=== PATIENT | female | born 2000 | race Caucasian/White ===

== ENCOUNTER 2023-09-07 17:01 | Inpatient (IN) | payer OTHER, SELFPAY ==
--- NOTE | 2023-09-07 15:03 | US_ITS ---
EXAM: US SECOND OR THIRD TRIMESTER , TRANSABDOMINAL CLINICAL INDICATION: growth and well being -- cholestasis -- limited care TECHNIQUE: Transabdominal obstetrical ultrasound of the maternal pelvis and a second or third trimester with image documentation. COMPARISON: No relevant prior studies available. FINDINGS: FETUS: There is an intrauterine gestation. HEART RATE: heart rate is 137 bpm. PRESENTATION: Fetus is in a cephalic position. PLACENTA: Placenta is anterior. No placenta previa. No abruption. AMNIOTIC FLUID: ANDREW is 20.8 cm. ANATOMY: Intracranial/face anatomy not seen. Spinal anatomy not seen. Abdominal anatomy not seen. Extremities not seen. Four-chamber heart not seen. Umbilical cord not seen. BIOMETRICS GESTATIONAL AGE: Gestational age 37 weeks 2 days. SETH: SETH 09/26/2023. EFW: Estimated weight 3485 g, 83rd percentile. BPD: Biparietal diameter 9.4 cm age 38 weeks 2 days, 88th percentile. HC: Head circumference 33.8 cm age 38 weeks 5 days, 62nd percentile. AC: Abdominal circumference 35.4 cm age 39 weeks 2 days, 97th percentile. FL: Femur length 7 cm age 5 weeks 5 days, since. MATERNAL: UTERUS: Unremarkable. No myometrial mass. CERVIX: Unremarkable as visualized. The cervix is closed. ADNEXA: Unremarkable. No adnexal masses. FREE FLUID: None. IMPRESSION: Intrauterine gestation with an average age 38 weeks 0 days and an ultrasound estimated due date of 09/21/2023. heart rate is 137 bpm. ANDREW is 20.8 cm. Electronically Signed: Magdy Estrada MD at 23:54 EDT , EXAM: US BIOPHYSICAL PROFILE WITHOUT NON-STRESS TESTING CLINICAL INDICATION: growth and well being -- cholestasis -- limited care TECHNIQUE: Real-time ultrasound of the maternal pelvis for biophysical profile evaluation with image documentation. COMPARISON: No relevant prior studies available. FINDINGS: BREATHING MOVEMENTS: Present. Score 2/2. GROSS BODY MOVEMENTS: Present. Score 2/2. TONE: Present. Score 2/2. QUALITATIVE AMNIOTIC FLUID VOLUME: ANDREW is 20.8 cm. HEART RATE: heart rate is 136 bpm. PRESENTATION: There is an intrauterine gestation in the cephalic position. PLACENTA: Placenta is anterior. OTHER FINDINGS: Biophysical profile score is 8/8. US/OB Limited With Biometrics IMPRESSION: Biophysical profile score 8/8. Electronically Signed: Magdy Estrada MD at 23:55 EDT ,
[2023-09-07 15:08] VITALS: BMI 26.4
[2023-09-07 15:18] LABS: Hematocrit 41.2 % (37-47); Mean Corpuscular Hgb 32.9 pg (27.0-32.0); Mean Corpuscular Volume 96.9 fL (81-99); Mean Platelet Vol. 12.4 fl (6.2-12.0); Platelet Count 212 K/mm3 (150-450); RBC Distribution Width CV 13.3 % (11.6-14.6); RBC Distribution Width SD 47.9 fl (35.1-43.9); Red Blood Count 4.25 M/mm3 (4.2-5.4); White Blood Count 8.5 K/mm3 (4.4-11.0)
[2023-09-07 15:29] LABS: AST(SGOT) 87 U/L (15-37); Alanine Aminotransfer ALT/SGPT 186 U/L (13-56); Creatinine, Serum 0.62 mg/dL (0.55-1.02); EST Glomerular Filtration Rate 125 mL/min (>60); Est Glom Filt Rate - Afr Amer 151 mL/min (>60); Estimated Creatinine Clearance 144.36 ml/min; Uric Acid 4.5 mg/dL (2.6-6.0)
[2023-09-07 15:49] VITALS: BP 121/77; PULSE 72; PULSE 75; PULSE 76; RESP 14; TEMP 36.8; O2SAT 100
[2023-09-07 16:46] LABS: Protein, Urine (Random) 35.9 mg/dL (<11.9); Protein:Creat Ratio 243 mg/g CRE (0-200)
--- NOTE | 2023-09-07 17:38 | PCM.HP.OB ---
HPI - General General Date of Admission: 09/07/23 HPI Narrative GABINO WHITE, is a 23 y/o @ 37 weeks 2 days by LMP (confirmed by 20 week anatomy scan) who presents to L&D from a manager community development for treatment of cholestasis of . Chacha, her stereo equipment salesperson states that the patient has been complaining of itching since early last week. On last week bile acids were collected at [facility] and the total bile acid number was noted to be in the 80's. LFTs were also slightly elevated at that time. The patient did not have the typical ob labs or GCT labs. She denies headaches, visual changes, nausea, vomiting, RUQ pain, dec fm, or loss of fluid/bleeding. Ultrasound was ordered showing that the baby is in the 80th % and ANDREW is 20. Vertex presentation was confirmed. Labs showed worsening of the LFts but otherwise normal platelets and MD: Cr ratio. The plan is to admit to L&D for IOL for cholestasis of . PFSH PFSH Home Medications ?Medication ?Instructions ?Recorded ?Last Taken ?Type Lactobacillus acidophilus and 1 cap PO DAILY supplementation 09/07/23 Unknown History rhamnosus 15 billion cell capsule (Florajen Women) PNV 153-FA 400 mcg-om3 35 mg-dha 1 tab PO DAILY 09/07/23 Unknown History 25 mg-epa 5 mg-fish oil chew tablet ( Gummies) alfalfa 500 mg tablet 3,000 mg PO BID supplementation 09/07/23 Unknown History ascorbic acid (vitamin C) 1,000 mg 1,000 mg PO DAILY 09/07/23 Unknown History tablet,extended release (C Complex) iron [id number] 2 tab PO BID iron supplementation 09/07/23 Unknown History lactoferrin 250 mg capsule 1,000 mg PO BID iron 09/07/23 Unknown History supplementation vit B 1 cap PO BID supplementation 09/07/23 Unknown History complex-methyltetrahydrofolate glucosamine 680 mcg DFE capsule (B Activ) Allergy/AdvReac Type Severity Reaction Status Date / Time No Known Allergies Allergy Verified 09/07/23 15:09 ROS Constitutional Constitutional: Denies change in weight, fatigue, fever(s), headache(s), poor appetite or weakness Eyes Eyes: Denies blurry vision, change in vision, seeing flashes or spots in vision ENT HEENT: Denies dizziness, headache(s), loss taste/smell or sore throat Cardiovascular Cardiovascular: Denies chest pain, dizziness, dyspnea, irregular heart rhythm, leg edema, palpitations, rapid heart rate or vomiting Respiratory/Chest Respiratory/Chest: Denies chest tightness, cough, dyspnea or breast pain Gastrointestinal Gastrointestinal: Denies abdominal pain, anorexia, constipation, cramping, diarrhea, hemorrhoids, vomiting or weight changes Genitourinary Genitourinary: Denies dysuria, flank pain, genital lesions, genital pain, urinary frequency or urinary urgency Musculoskeletal Musculoskeletal: Denies back pain, difficulty walking, joint pain, limited range of motion, muscle cramps or numbness Integumentary Integumentary: Denies lesions or unusual bruising Neurologic Neurologic: Denies abnormal movements, abnormal speech, dizziness, numbness, seizure-like activity or syncope Psychiatric Psychiatric: Denies anxiety, behavioral changes, change in appetite, change in libido, cognitive impairment, confusion, depression, difficulty concentrating, hallucinations or suicidal thoughts Endocrine Endocrinology: Denies excessive sweating, polydipsia or polyuria Hematologic/Lymphatic Hematologic/Lymphatic: Denies easy bleeding, easy bruising or lymphadenopathy Allergic/Immunologic Allergic/Immunologic: Denies itchy eyes, lip swelling, seasonal rhinorrhea, rhinitis, throat swelling, tongue swelling, eczemia, wheezing or asthma Vital Signs Vital Signs Vital Signs: 09/07/23 15:49 09/07/23 15:49 09/07/23 15:49 Temperature Temperature Source Pulse Rate 76 75 Respiratory Rate Blood Pressure 121/77 H BP Systolic 121 BP Diastolic 77 Pulse Ox 09/07/23 15:49 09/07/23 15:49 09/07/23 15:49 Temperature Temperature Source Temporal Pulse Rate 72 Respiratory Rate Blood Pressure BP Systolic BP Diastolic Pulse Ox 100 09/07/23 15:49 09/07/23 15:49 09/07/23 15:49 Temperature 98.3 F Temperature Source Pulse Rate Respiratory Rate 14 Blood Pressure BP Systolic BP Diastolic Pulse Ox 100 Weight Weight: 164 lb 2 oz Body Mass Index (BMI) 26.4 Physical Exam Const alert, oriented x3, no apparent distress and healthy appearing General Appearance: cooperative; Negative for anxious HEENT normocephalic Face and Sinus: normal facial exam Eyes EOMs intact bilaterally and no scleral icterus General Eye: normal appearance of both eyes Neck full ROM and supple Lymph Lymphatic: no lymphadenopathy noted Chest Chest: abnormal inspection of the chest Resp normal respiratory effort Effort and Inspection: able to speak in complete sentences Cardio regular rate GI soft to palpation and non-tender Inspection: gravid Palpation: soft; Negative for tender external exam normal Manual OB Exam: not dilated nor effaced, presentation cephalic, dilated 0, effaced 0, station -3 and other Uterus Palpation: Negative for uterus tender Back/Spine no CVA tenderness Extremity normal to inspection, full ROM and no clubbing, cyanosis or edema General Extremity: Negative for calf tenderness or edema Skin Lesions: no lesions Rashes: no rashes Psych mental status grossly normal Labs Labs Labs: Hct 41.2 % (37-47) Hgb 14.0 g/dL (12.0-15.0) Obstetrics Ultrasound Assessment & Plan (1) History of inadequate care: COMMENT: saw Chacha in [place], a manager community development. No labs done including GCT or GBS PLAN: plan to order HIV, hepatitis B Sab, Hep C, Syphilis, Rubella status, type and screen, and glucose levels in labor - start with q 4 hr finger sticks followed by q 2 hour in labor as needed . BPP was 8/8 and growth was in the 80th% and cephalic presentation (2) Cholestasis during in third trimester: PLAN: LFTs elevated - start IOL Patient presents IOL, plan management for with cytotec tonight. Pain management: undecided . GBS - pending . Management of any complications: cholestasis of I have reviewed the [facility] and made any clinically relevant updates. (3) 37 weeks gestation of : PLAN: gestational age by LMP and confirmed by 20 week us. Charges/Coding Multi Select Codes Visit Charges Visit Charges: 77582 Init Hosp L3
[2023-09-07 18:40] LABS: Bedside Glucose 76 mg/dL (74-106)
[2023-09-07] MEDS: miSOPROStol 25 MCG TABLET VAGINAL ×2 (19:04→23:08)
[2023-09-07 19:21] LABS: HIV - WCH Non-Reactive (Nonreactive); Hepatitis B Surface Antigen Non-Reactive (Nonreactive); Hepatitis C Antibody Non-Reactive (Nonreactive); Rubella IgG Reactive (Nonreactive); Syphilis Antibodies Non-reactive
[2023-09-07 19:58] VITALS: BP 112/70; PULSE 67; RESP 16; TEMP 35.9; O2SAT 99
[2023-09-07 20:16] LABS: Mucous, Urine 0 SEEN /hpf (<or=2+); Red Blood Cells-Urine 0 SEEN /hpf (0-5); White Blood Cells 0 SEEN /hpf (0-5)
[2023-09-07 20:22] LABS: Color, Urine Yellow (Yellow); Glucose, Dipstick Normal (Normal); Ketone-Dipstick Negative (Negative); Leukocyte Esterase-Dipstick 25 /ul (Negative); Nitrite-Dipstick Negative (Negative); Occult Blood-Urine Negative /ul (Negative); Protein-Dipstick Negative (Negative); Urine Bilirubin Dipstick Negative (Negative); Urine Clarity Sl. Cloudy (Clear); Urine Urobilinogen 1 mg/dl (Normal)
[2023-09-07 20:39] LABS: Amphetamine Urine VISTA NEGATIVE (<1000 ng/mL); Barbiturate Urine VISTA NEGATIVE (< 200 ng/mL); Benzodiazepine Urine VISTA NEGATIVE (< 200 ng/mL); Cocaine Urine VISTA NEGATIVE (< 300 ng/mL); Ecstacy Urine VISTA NEGATIVE (< 500 ng/mL); Methadone Urine VISTA NEGATIVE (< 300 ng/mL); PCP Urine VISTA NEGATIVE (< 25 ng/mL); THC Urine VISTA NEGATIVE (< 50 ng/mL); Vista UDS pH Range 6
[2023-09-07 20:42] LABS: Bacteria 1+ /hpf (None Seen); Squamous Epithelial Cells - UA 0-5 SEEN /hpf (5-10)
[2023-09-07 21:05] VITALS: PULSE 61; RESP 16; TEMP 36.6; O2SAT 96
[2023-09-07 21:06] VITALS: BP 124/71; PULSE 62
[2023-09-07 23:03] VITALS: BP 140/83; PULSE 66; PULSE 67; RESP 16; TEMP 37.6; O2SAT 98
[2023-09-07 23:34] LABS: Bedside Glucose 94 mg/dL (74-106)
[2023-09-08] VITALS (43 sets, daily range): BP systolic 97–139; BP diastolic 51–89; PULSE 56–99; RESP 14–18; TEMP 36–37.1; O2SAT 94–99
[2023-09-08] MEDS: Lactated Ringers 1,000 ML 50 ML IV (00:20)
[2023-09-08] MEDS: LACTATED RINGERS 500 ML 999 ML IV ×2 (00:21→05:01)
[2023-09-08 03:45] LABS: Bedside Glucose 95 mg/dL (74-106)
--- NOTE | 2023-09-08 04:24 | PCM.PN.BLA ---
Progress Note nurse called to assess patient for minimal to moderate variability and a prolonged deceleration. patient has received one dose of cytotec and cervix is unreachable by the nurse. She is in hands/knees when entering the room. current tracing: FHT: 140 mild to Moderate variability reactive, has a 4 minute decel down to cj of 80 for second time [place]: q 2-3 minutes Contractions reviewed tracing abnormalities since last note: definite change since first check A/P: recommend epidural in the case and emergency section is needed. pt wants to call her apartment community assistant manager first
[2023-09-08] MEDS: fentaNYL-bupivacaine (epidural) 100 ML BAG EPIDURAL (07:07)
[2023-09-08] MEDS: Cefazolin 2 GM in 0.9% Normal Saline (100mL Bag) 100 ML IV (07:56)
--- NOTE | 2023-09-08 07:57 | PLAC_PTH ---
PATIENT: GABINO WHITE LOC: [facility] U#:[id number] AGE/SX: 23/F [facility] [place] [facility]: Dr. Veronica Vyas DO : 2000 BED: 1 DIS: 09/10/2023 SPEC #: [id number] RECD: 09/08/23 10:25 STATUS: JOSE CARLOS BAXTERNayely #: [id number] PATRICIA: 09/08/23 07:[address]: Veronica Vyas DEPT: SURGICAL PATHOLOGY RECD BY: Brook Jamison ENTERED: 09/10/23 09:44 SP TYPE: PLACENTA OTHR DR: Dr. Bernardo Fraser MD Tissues: Placenta, NOS Procedures: Surgery Specimen Level V HEADER OPERATION: section PRE-OP DIAGNOSIS: Possible abruption TISSUE SUBMITTED: Placenta MICROSCOPIC DIAGNOSIS Henriquez placenta (620 gm): Umbilical cord - Trivascular with no evidence of inflammation. Placental membranes - Pigmented macrophages consistent with meconium staining. Placental disc - Focus of organizing intraparenchymal hemorrhage, Jose F-Raffaele change, intervillous congestion and intravillous congestion. AM: 09/11/2023 MICROSCOPIC DESCRIPTION Slides are reviewed. GROSS DESCRIPTION SPECIMEN: PLACENTA / CLINICAL INFORMATION: A. Weight: 2.915 kg B. Gestational Age: 37 weeks C. Sex: Male PLACENTAL WEIGHT (POST FIXATION): 620 gm PLACENTAL DIMENSIONS: 18.0 x 18.0 x 3.0 cm PLACENTAL SHAPE: Usual ovoid PLACENTAL WEIGHT FOR GESTATIONAL AGE: Within 10-99th percentile (over/under percentile) MEMBRANES - Present A. Insertion: Marginal B. Site of rupture from edge: at edge of placental disc C. Color of membrane: Felder-tucker D. Abnormalities: None UMBILICAL CORD - Present A. Color: Felder-tucker B. Insertion: Eccentric with spiraling C. Length: 48.0 cm D. Diameter: 1.5 cm E. Number of vessels: Three F. Abnormalities: None PLACENTAL DISC - Present A. Color of surface: Felder-tucker B. surface abnormalities: None C. Maternal cotyledons: Intact with minimal tears D. Attached retro placental clot: No clot E. Cut surface: Dark red and spongy F. Lesions: A firm felder white lesion measuring 1.0 x 1.0 x 0.5cm. G. Separate clot: Absent SECTIONS SUBMITTED: Dr. Wynne 1. Umbilical cord ( end notched) 2. Umbilical cord, placental end 3. Membrane roll, lesion 4. Placental disc, and maternal surfaces 5. Placental disc, and maternal surfaces 6. Placental disc, and maternal surfaces AM/mr 09/10/2023 TC:5 CPT: 43412
[2023-09-08 08:08] LABS: Bedside Glucose 96 mg/dL (74-106)
[2023-09-08] MEDS: Azithromycin 500 MG in Dextrose 5%-Water (250mL Bag) 250 ML 250 MG IV (08:26)
[2023-09-08] MEDS: Methylergonovine 0.2 MG/ML Ampul IM (08:55)
--- NOTE | 2023-09-08 09:04 | EX.PCM.OBRPT ---
Assessment & Plan (1) bradycardia: (2) 37 weeks gestation of : (3) Cholestasis during in third trimester: (4) History of inadequate care: COMMENT: justus Burnham in [place], a community health coordinator. No labs done including GCT or GBS Maternal Data Information Final SETH Source: LMP Gestational age: 37 weeks 3 days Doctor Who Attended Delivery: Memo Rich Details Operative Information Date of Procedure: 09/08/23 Pre-Operative Diagnosis: 37 weeks, cholestasis of , bradycardia not associated with labor contractions Post-Operative Diagnosis: 37 weeks, cholestasis of , bradycardia not associated with labor contractions, suspected abruption, meconium stained fluid Classification: Stat Procedure Type: low transverse labelling machine operator #1: Migue Gallo Type of Anesthesia: Epidural Anesthesiologist: Bruno Alaniz Antibiotic Given: Ancef 2 grams IV x1 Drain: Guajardo to straight drain Estimated Blood Loss: 700ccv Procedure Start Time: 07:55 Procedure Stop Time: 08:22 Time of Delivery: 07:57 Findings Description of Procedure: An ERNESTINE was called for bradycardia. During the prior 3-4 hours there were 2 spontaneous prolonged decelerations that recovered to a minimal to moderte variability pattern. Epidural was given at 7:07 am. The patient's blood pressure was found to be 107/51 despite fluid bolus. Late appearing decels started on the monitor. At 7:33 The ERNESTINE was called and the heart tones were in the 70's without return to a normal baseline. Guajardo catheter was placed. The patient was placed in the dorsal supine position with leftward tilt. Patient was prepped and draped in the normal sterile fashion. Pfannenstiel skin incision was made with the scalpel and carried through to the underlying layer of fascia with the scalpel. Fascia was nicked in the midline and the incision extended laterally. The rectus bellies were dissected off superiorly and inferiorly with out complication both sharply and bluntly. The peritoneum was entered digitally. The incision was stretched and a low transverse uterine incision was made with the scalpel. Thick meconium stained fluid was first noted followed by port wine blood. The 's head was delivered atraumatically followed by the anterior and posterior shoulders without complication the rest of the delivered. The cord was clamped and cut and the was handed off to awaiting nurse. The placenta was delivered spontaneously immediately following and was noted to be abrupted and have a three-vessel cord. The uterus was exteriorized cleared of all clots and debris, and the incision was closed in a double layer closure using #1 Monocryl. The ovaries and fallopian tubes were noted to be within normal limits. The uterus was returned to the maternal abdomen and gutters were cleared of all clots and debris. The peritoneum was closed with 3-0 Monocryl in a running fashion. Gloves were changed prior to fascial closure. Fascia was closed with 0 PDS in a running fashion. Subcutaneous tissue was copiously irrigated and the skin was closed with 3-0 Monocryl in a subcuticular fashion. Mepilex dressing was applied without complication. Patient was taken to recovery in stable condition. It was discussed with the patient that based on the clinical information obtained during this encounter, combined with her history, at this time I would recommend either TOLAC or repeat for future deliveries if further pregnancies are desired. Presentation: Positive for Vertex Amniotic Fluid Description: Moderate meconium Placental Delivery Description: Expressed Placenta Disposition: Routine to Lab Percentage of Placenta Abruption: 10 Specimen(s) Sent to Pathology: placenta Cord Vessel Description: 3 Vessels Cord Entanglement: None Cord Gases: ABG and VBG Infant A Gender: Male (1 minute): 5 (5 minute): 8 Delayed Cord Clamping: No Complications Risks of Surgery Discussed w/Patient: Bleeding, Anesthesia Risks, Infection, Need for Future C-Sections and Injury to surrounding structure(s) including bowel and bladder Complications: none Multi Select Codes Urinary/Genital Urinary/Genital CPT Codes: 89285 delivery+ Care([facility])
[2023-09-08] MEDS: Oxytocin 15 Units/NS 250ml 15 UNITS/250 ML IV.SOLN 83 UNITS IV (09:07)
--- NOTE | 2023-09-08 09:13 | DCINST_ITS ---
Discharge Instructions Diet Discharge Diet: No restrictions Activity Discharge Activity: May Not Drive (for 2 weeks or while taking narcotic pain medications.), May Shower and May Take a Tub Bath (in 7 days.) May resume sexual activity in: 4-6 weeks Weight Bearing Status: Full weight bearing Lifting Restrictions: 20 pounds Dressing / Incision Call your doctor if your incision/area has: Continuous Slow Oozing, Sudden Increased Bleeding, Increased Pain/ Swelling, Increased Redness and Foul Smelling Discharge Call your doctor if you observe: Fever of 101 or Higher and Using more than 1 pad per hour Suture Line Care: Avoid Pulling/Pushing and Avoid Pinching/Bending Cleanse incision/area with: Soap & Water and Keep Dressing Clean & Dry Follow Up Care Please Follow Up With: Veronica Vyas DO When: Call [phone] to make an appointment for an incision check in 1-2 weeks. Test Results: Test results from this visit will be discussed in further detail at your follow- up appointment, if applicable. Discharge Plan Admission Admit Date/Time: 09/07/23 17:01 Primary Reason for Your Visit: section Attending Provider: Veronica Vyas Primary Care Provider: Bernardo Fraser Discharge Orders/Prescriptions Prescriptions: New ibuprofen 800 mg tablet 800 mg PO Q8H PRN (Reason: pain) Qty: 30 0RF oxycodone-acetaminophen [Percocet] 5-325 mg tablet 1 tab PO Q4H PRN (Reason: pain) 7 Days Qty: 18 0RF Rx Instructions: 1-2 tabs q 4 hrs as needed for pain No Action Gummies 400 mcg-35 mg- 25 mg-5 mg tablet,chewable 1 tab PO DAILY iron [id number] [Albaro-Plex Hematinic] 2 tab PO BID B Activ 680 mcg DFE capsule 1 cap PO BID alfalfa 500 mg tablet 3,000 mg PO BID C Complex 1,000 mg tablet extended release 1,000 mg PO DAILY lactoferrin 250 mg capsule 1,000 mg PO BID Florajen Women 15 billion cell capsule 1 cap PO DAILY Referrals / Follow Up: Bernardo Fraser MD [Primary Care Provider] - Disposition Disposition (needs filled in before D/C Order can be placed): Home, Self Care
[2023-09-08] MEDS: Ketorolac 30 MG/ML Syringe IV ×2 (09:23→21:26)
[2023-09-08] MEDS: HYDROmorphone 0.5 MG/0.5 ML SYRINGE IV ×2 (10:19→15:05)
[2023-09-08 10:26] LABS: Pathology Specimen OB SEE PATHOLOGY REPORT
[2023-09-08 10:39] LABS: Absolute Lymphocyte Count 0.78 X10^3/uL (0.83-4.51); Absolute Neutrophil Count 14.6 X10^3/uL (2.0-7.7); Basophil# 0.01 X10^3/uL; Basophil% 0.1 % (0-1); Hematocrit 36.2 % (37-47); Hemoglobin 12.2 g/dL (12.0-15.0); Lymphocyte # 0.78 X10^3/ul (0.83-4.51); Lymphocyte % 4.6 % (19-41); Mean Corp Hgb Conc 33.7 g/dL (32-36); Mean Corpuscular Hgb 32.7 pg (27.0-32.0); Mean Corpuscular Volume 97.1 fL (81-99); Mean Platelet Vol. 12.3 fl (6.2-12.0); Monocyte# 1.59 X10^3/uL; Monocyte% 9.3 % (0-10); NRBC Flagged by Analyzer 0 % (0-5); Neutrophil # 14.62 X10^3/uL (2.7-7.7); Neutrophil % 85.6 % (47-70); POSITIVE DIFFERENTIAL YES; Platelet Count 198 K/mm3 (150-450); RBC Distribution Width CV 13.4 % (11.6-14.6); RBC Distribution Width SD 48.2 fl (35.1-43.9); Red Blood Count 3.73 M/mm3 (4.2-5.4); White Blood Count 17.1 K/mm3 (4.4-11.0)
[2023-09-08 10:40] LABS: Differential Indicated SCAN CRITERIA MET
[2023-09-08 11:42] LABS: Differential Comment SCANNED
[2023-09-08] MEDS: Acetaminophen 500 MG Tablet 1000 MG PO ×2 (12:19→17:56)
[2023-09-08] MEDS: Lactated Ringers 1,000 ML 100 ML IV (13:09)
[2023-09-08] MEDS: Lactated Ringers 1,000 ML 999 ML IV (14:45)
[2023-09-08] MEDS: Ondansetron 4 MG/2 ML Vial IV (15:34)
[2023-09-08] MEDS: Enoxaparin 40 MG/0.4 ML Syringe SC (21:26)
[2023-09-08] MEDS: Prenatal Vits Tablet 2 TABLET PO (21:33)
[2023-09-09] MEDS: Acetaminophen 500 MG Tablet 1000 MG PO ×4 (00:05→17:39)
[2023-09-09] MEDS: 0.9% Saline Lock 10 ML Syringe IV ×2 (03:34→12:02)
[2023-09-09] MEDS: Ketorolac 30 MG/ML Syringe IV (03:34)
[2023-09-09 06:01] LABS: Hematocrit 27.1 % (37-47); Mean Corp Hgb Conc 33.2 g/dL (32-36); Mean Corpuscular Hgb 33.2 pg (27.0-32.0); Mean Platelet Vol. 12.1 fl (6.2-12.0); Platelet Count 179 K/mm3 (150-450); RBC Distribution Width CV 13.9 % (11.6-14.6); RBC Distribution Width SD 50.6 fl (35.1-43.9); Red Blood Count 2.71 M/mm3 (4.2-5.4); White Blood Count 14.8 K/mm3 (4.4-11.0)
[2023-09-09 08:34] VITALS: BP 105/71; PULSE 62; RESP 18; TEMP 36.6; O2SAT 99
[2023-09-09] MEDS: Senna/Docusate Sodium 1 Tablet PO (08:39)
[2023-09-09] MEDS: Ibuprofen 600 MG Tablet PO ×3 (08:40→21:35)
--- NOTE | 2023-09-09 09:08 | PN.OBGYN_ITS ---
Subjective Subjective Patient doing well without complaints. Tolerating PO. Ambulating and voiding without difficulty. Feeding well. Denies chest pain, shortness of breath, calf pain/swelling, fevers, chills, lightheadedness. Objective Data Objective Data Vital Signs: Vital Signs Temp Pulse Resp BP Pulse Ox O2 Del Method 98.0 F 63 16 97/63 97 Room Air 09/08/23 23:59 09/08/23 23:59 09/08/23 23:59 09/08/23 23:59 09/08/23 23:59 09/08/23 23:59 Oxygen Delivery Method Room Air Weight: 164 lb 2 oz Body Mass Index (BMI) 26.4 Intake & Output: Intake and Output for Last 24 Hours 09/07/23 09/08/23 09/09/23 23:59 23:59 23:59 Intake Total 4589.17 / 4589.17 826.67 / 826.67 Output Total 3206 / 3456 550 / 550 Balance 1383.17 / 1133.17 276.67 / 276.67 Lab / Micro Data Attestation: I reviewed the patient's lab results. 09/09/23 05:55 09/07/23 15:05 Labs: Laboratory Results - last 24 hr 09/07/23 18:00: Blood Type A POSITIVE 09/08/23 10:30: WBC 17.1 H, RBC 3.73 L, Hgb 12.2, Hct 36.2 L, MCV 97.1, MCH 32.7 H, MCHC 33.7, RDW Std Deviation 48.2 H, RDW Coeff of Apolinar 13.4, Plt Count 198, M PV 12.3 H, Immature Gran % (Auto) 0.400, Neut % (Auto) 85.6 H, Lymph % (Auto) 4.6 L, Swift % (Auto) 9.3, Eos % (Auto) 0.0, Baso % (Auto) 0.1, Absolute Neuts (auto) 14.6 H, Absolute Lymphs (auto) 0.78 L, Nucleated RBC % 0, Differential Comment SCANNED, Diff Path Review August09/09/23 05:55: WBC 14.8 H, RBC 2.71 L, Hgb 9.0 L, Hct 27.1 L, MCV 100.0 H, MCH 33.2 H, MCHC 33.2, RDW Std Deviation 50.6 H, RDW Coeff of Apolinar 13.9, Plt Count 179, MPV 12.1 H Micro: Microbiology 09/07/23 20:00 Genital vaginal Chlamydia trachomatis (PCR) - Final 09/07/23 20:00 Genital vaginal Neisseria gonorrhoeae (PCR) - Final 09/07/23 16:15 Genital vaginal Group B Streptococcus (PCR) - Final Streptococcus Group B ROS Constitutional Constitutional: Reports systems reviewed and no addt'l complaints, except as documented; Denies anorexia or headache(s) Cardiovascular Cardiovascular: Reports systems reviewed and no addt'l complaints, except as documented; Denies dizziness, dyspnea, nausea or tachypnea Respiratory/Chest Respiratory/Chest: Reports systems reviewed and no addt'l complaints, except as documented; Denies cough, dyspnea, shortness of breath at rest or tachypnea Gastrointestinal Gastrointestinal: Reports systems reviewed and no addt'l complaints, except as documented; Denies abdominal pain, constipation or nausea Genitourinary Genitourinary: Reports systems reviewed and no addt'l complaints, except as documented; Denies burning urination, difficulty urinating, dysuria, urinary frequency or urinary incontinence Musculoskeletal Musculoskeletal: Reports systems reviewed and no addt'l complaints, except as documented Integumentary Integumentary: Reports systems reviewed and no addt'l complaints, except as documented Neurologic Neurologic: Reports systems reviewed and no addt'l complaints, except as documented; Denies abnormal speech, dizziness or headache(s) Psychiatric Psychiatric: Reports systems reviewed and no addt'l complaints, except as documented Endocrine Endocrinology: Reports systems reviewed and no addt'l complaints, except as documented Hematologic/Lymphatic Hematologic/Lymphatic: Reports systems reviewed and no addt'l complaints, except as documented Physical Exam Const alert, oriented x3 and no apparent distress Neck full ROM Resp normal respiratory effort, normal air movement and no retractions Effort and Inspection: able to speak in complete sentences and symmetric chest movement GI soft to palpation Bladder / Kidney Exam: bladder normal to palpation Uterus Palpation: uterus fundus firm Extremity normal to inspection and full ROM Psych mental status grossly normal, thought process normal and cooperative Assessment & Plan (1) Delivery by section at 37-39 weeks of gestation due to labor: PLAN: s/p LTCS PPD # 1 1. routine post care 2. breast feeding- support given 3. rh positive 4. rubella immune (2) bradycardia: (3) 37 weeks gestation of : (4) Cholestasis during in third trimester: (5) History of inadequate care: COMMENT: justus miguel [place], a community development specialist. No labs done including GCT or GBS Charges/Coding Multi Select Codes Urinary/Genital Urinary/Genital CPT Codes: No Charge
[2023-09-09] MEDS: Prenatal Vits Tablet 1 TABLET PO (11:59)
[2023-09-09 12:17] LABS: Absolute Neutrophil Count 13.3 X10^3/uL (2.0-7.7); Basophil# 0.04 X10^3/uL; Basophil% 0.2 % (0-1); Eosinophil# 0.03 X10^3/uL; Eosinophils% 0.2 % (0-5); Hematocrit 29.3 % (37-47); Hemoglobin 9.6 g/dL (12.0-15.0); Lymphocyte % 8.6 % (19-41); Mean Corp Hgb Conc 32.8 g/dL (32-36); Mean Corpuscular Hgb 32.8 pg (27.0-32.0); Mean Platelet Vol. 11.9 fl (6.2-12.0); Monocyte# 1.37 X10^3/uL; Monocyte% 8.4 % (0-10); NRBC Flagged by Analyzer 0 % (0-5); Neutrophil # 13.31 X10^3/uL (2.7-7.7); Neutrophil % 81.9 % (47-70); Platelet Count 186 K/mm3 (150-450); RBC Distribution Width SD 51.8 fl (35.1-43.9); Red Blood Count 2.93 M/mm3 (4.2-5.4); White Blood Count 16.3 K/mm3 (4.4-11.0)
[2023-09-09 14:16] VITALS: BP 108/58; PULSE 64; RESP 18; TEMP 36.6; O2SAT 99
[2023-09-09 20:31] VITALS: BP 97/60; PULSE 69; RESP 18; TEMP 36.4
[2023-09-09] MEDS: Enoxaparin 40 MG/0.4 ML Syringe SC (21:35)
[2023-09-10] MEDS: Acetaminophen 500 MG Tablet 1000 MG PO ×2 (00:31→05:55)
[2023-09-10 03:13] VITALS: BP 115/66; PULSE 62; RESP 16
[2023-09-10] MEDS: Ibuprofen 600 MG Tablet PO ×2 (03:13→09:41)
[2023-09-10 07:47] VITALS: BP 122/70; PULSE 72; RESP 18; TEMP 36.6; O2SAT 98
--- NOTE | 2023-09-10 07:47 | PCM.PN.OB ---
Subjective Subjective Patient doing well without complaints. Tolerating PO. Ambulating and voiding without difficulty. Feeding well. Denies chest pain, shortness of breath, calf pain/swelling, fevers, chills, lightheadedness. Objective Data Objective Data Vital Signs: Vital Signs Temp Pulse Resp BP Pulse Ox O2 Del Method 97.5 F L 62 16 115/66 99 Room Air 09/09/23 20:31 09/10/23 03:13 09/10/23 03:13 09/10/23 03:13 09/09/23 14:16 09/10/23 03:13 Oxygen Delivery Method Room Air Weight: 164 lb 2 oz Body Mass Index (BMI) 26.4 Intake & Output: Intake and Output for Last 24 Hours 09/08/23 09/09/23 09/10/23 23:59 23:59 23:59 Intake Total 4589.17 / 4589.17 826.67 / 826.67 Output Total 3206 / 3456 1050 / 1050 Balance 1383.17 / 1133.17 -223.33 / -223.33 Lab / Micro Data 09/09/23 12:05 09/07/23 15:05 Labs: Laboratory Results - last 24 hr 09/07/23 18:00: Blood Type A POSITIVE 09/09/23 12:05: WBC 16.3 H, RBC 2.93 L, Hgb 9.6 L, Hct 29.3 L, MCV 100.0 H, MCH 32.8 H, MCHC 32.8, RDW Std Deviation 51.8 H, RDW Coeff of Apolinar 14.0, Plt Count 186, MPV 11.9, Immature Gran % (Auto) 0.700, Neut % (Auto) 81.9 H, Lymph % (Auto) 8.6 L, [place] % (Auto) 8.4, Eos % (Auto) 0.2, Baso % (Auto) 0.2, Absolute Neuts (auto) 13.3 H, Absolute Lymphs (auto) 1.40, Nucleated RBC % 0 Micro: Microbiology 09/07/23 20:00 Genital vaginal Chlamydia trachomatis (PCR) - Final 09/07/23 20:00 Genital vaginal Neisseria gonorrhoeae (PCR) - Final 09/07/23 16:15 Genital vaginal Group B Streptococcus (PCR) - Final Streptococcus Group B Physical Exam Const alert and oriented x3 General Appearance: cooperative HEENT normocephalic Eyes PERRL Neck full ROM Resp normal respiratory effort GI soft to palpation GI Narrative: FF below U. Dressing dry and intact Palpation: tender other (appropriately) Assessment & Plan (1) Delivery by section at 37-39 weeks of gestation due to labor: (2) Cholestasis during in third trimester: (3) History of inadequate care: COMMENT: [employer] [place], a [employer]. No labs done including GCT or GBS PLAN: Plan s/p LTCS PPD # 2 1. routine post care 2. breast feeding- support given 3. rh positive 4. rubella immune 5. home today
[2023-09-10 09:28] LABS: ALB/GLOB Ratio 0.5 RATIO (0.9-2.4); AST(SGOT) 45 U/L (15-37); Alanine Aminotransfer ALT/SGPT 96 U/L (13-56); Alkaline Phosphatase 196 U/L (45-117); Anion Gap 8 (5-15); BUN 10 mg/dL (7-18); BUN/Creat Ratio 16.1 RATIO (10-20); Chloride 111 mmol/L (98-107); Creatinine, Serum 0.62 mg/dL (0.55-1.02); EST Glomerular Filtration Rate 125 mL/min (>60); Est Glom Filt Rate - Afr Amer 151 mL/min (>60); Estimated Creatinine Clearance 144.36 ml/min; Globulin 4.3 g/dL (2.2-4.2); Glucose 85 mg/dL (74-106); Potassium 3.9 mmol/L (3.5-5.1); Protein, Total 6.3 g/dL (6.4-8.2); Sodium Level 141 mmol/L (136-145)
[2023-09-10] MEDS: Senna/Docusate Sodium 1 Tablet PO (09:41)
[2023-09-10 14:41] LABS: Pathologist Review Reviewed
--- NOTE | 2023-09-16 10:39 | PCM.DC.SUM ---
Providers Date of Admission: 09/07/23 Primary Care Physician: Dr. Bernardo Fraser MD Reason For Visit: PRIMARY Diagnosis Discharge Diagnosis (1) Delivery by section at 37-39 weeks of gestation due to labor: Status: Acute Code(s): O75.82 - Onset (spontaneous) of labor after 37 completed weeks of gestation but before 39 completed weeks gestation, with delivery by (planned) section (2) Cholestasis during in third trimester: Status: Acute Code(s): O26.643 - Intrahepatic cholestasis of , third trimester (3) History of inadequate care: Status: Acute Code(s): O09.30 - Supervision of with insufficient care, unspecified trimester Plan s/p LTCS PPD # 2 1. routine post care 2. breast feeding- support given 3. rh positive 4. rubella immune 5. home today Medications at Discharge Home Medications Lactobacillus acidophilus and rhamnosus 15 billion cell capsule (Florajen Women) 1 cap PO DAILY supplementation 09/07/23 PNV 153-FA 400 mcg-om3 35 mg-dha 25 mg-epa 5 mg-fish oil chew tablet ( Gummies) 1 tab PO DAILY 09/07/23 alfalfa 500 mg tablet 3,000 mg PO BID supplementation 09/07/23 ascorbic acid (vitamin C) 1,000 mg tablet,extended release (C Complex) 1,000 mg PO DAILY 09/07/23 iron [id number] 2 tab PO BID iron supplementation 09/07/23 lactoferrin 250 mg capsule 1,000 mg PO BID iron supplementation 09/07/23 vit B complex-methyltetrahydrofolate glucosamine 680 mcg DFE capsule (B Activ) 1 cap PO BID supplementation 09/07/23 ibuprofen 800 mg tablet 800 mg PO Q8H PRN pain #30 tabs 09/08/23 oxycodone-acetaminophen 5 mg-325 mg tablet (Percocet) 1 tab PO Q4H PRN pain 7 days #18 tabs 09/08/23 Hospital Course Operations section Summary of Care Provided Hospital Course: Patient underwent section with routine recovery, return of normal bowel and bladder function. Ambulating, voiding and tolerating PO. Stable for discharge home POD #3. Weight / BMI Weight Weight: 164 lb 2 oz Body Mass Index (BMI) 26.4 ABG / Lab / Microbiology Data 09/09/23 12:05 09/10/23 08:50 Microbiology: Microbiology 09/07/23 20:00 Genital vaginal Chlamydia trachomatis (PCR) - Final 09/07/23 20:00 Genital vaginal Neisseria gonorrhoeae (PCR) - Final 09/07/23 16:15 Genital vaginal Group B Streptococcus (PCR) - Final Streptococcus Group B D/C Instructions Discharge Diet: No restrictions May resume sexual activity in: 4-6 weeks Weight Bearing Status: Full weight bearing Call your doctor if your incision/area has: Continuous Slow Oozing, Sudden Increased Bleeding, Increased Pain/ Swelling, Increased Redness and Foul Smelling Discharge Call your doctor if you observe: Fever of 101 or Higher and Using more than 1 pad per hour Suture Line Care: Avoid Pulling/Pushing and Avoid Pinching/Bending Cleanse incision/area with: Soap & Water and Keep Dressing Clean & Dry Please Follow Up With: Veronica Vyas DO When: Call [phone] to make an appointment for an incision check in 1-2 weeks. Meaningful Use Info Meaningful Use Meaningful Use Diagnoses (Choose all that apply): None applicable Ischemic Stroke Statin Dosing Therapy Reference: STATIN DOSE THERAPY REFERENCE: * Patients > 75 years receive moderate or high dose statin therapy. * Patients 75 years or YOUNGER should receive HIGH intensity statin dose unless contraindicated. You will be required to document reason for non-treatment if statin daily dose does not meet guidelines. HIGH DOSE STATIN THERAPY DAILY Atorvastatin > than or = to 40 mg Rosuvastatin > than or = to 20 mg Amlodipine + Atorvastatin > than or = to 2.5/40 mg Ezetimibe + Simvastatin 10/80 mg Simvastatin 80mg Discharge Plan Admission Admit Date/Time: 09/07/23 17:01 Primary Reason for Your Visit: section Attending Provider: Veronica Vyas Primary Care Provider: Bernardo Fraser Discharge Orders/Prescriptions Prescriptions: New ibuprofen 800 mg tablet 800 mg PO Q8H PRN (Reason: pain) Qty: 30 0RF oxycodone-acetaminophen [Percocet] 5-325 mg tablet 1 tab PO Q4H PRN (Reason: pain) 7 Days Qty: 18 0RF Rx Instructions: 1-2 tabs q 4 hrs as needed for pain No Action Gummies 400 mcg-35 mg- 25 mg-5 mg tablet,chewable 1 tab PO DAILY iron [id number] [[facility] Hematinic] 2 tab PO BID B Activ 680 mcg DFE capsule 1 cap PO BID alfalfa 500 mg tablet 3,000 mg PO BID C Complex 1,000 mg tablet extended release 1,000 mg PO DAILY lactoferrin 250 mg capsule 1,000 mg PO BID Florajen Women 15 billion cell capsule 1 cap PO DAILY Referrals / Follow Up: Bernardo Fraser MD [Primary Care Provider] - Disposition Disposition (needs filled in before D/C Order can be placed): Home, Self Care
== END 2023-09-10 10:30 | disposition home or self-care (01) | DRG 786 ==
LOC: WPOUT 17:12 → WP 17:12
PROVIDERS: Advanced Practice Midwife; Nurse Practitioner Women's Health; Admitting Provider Obstetrics & Gynecology; PCP Family Medicine; Referring Provider Obstetrics & Gynecology; Visit Provider Obstetrics & Gynecology
DX: O76 Abnormality in fetal heart rate and rhythm complicating labor and delivery (principal); O45.93 Premature separation of placenta, unspecified, third trimester; O26.643 Intrahepatic cholestasis of pregnancy, third trimester; Z3A.37 37 weeks gestation of pregnancy; O77.0 Labor and delivery complicated by meconium in amniotic fluid; Z37.0 Single live birth
CPT/HCPCS: 59025; 59050; 76816; 76819; 80053; 80307; 81001; 82565; 82570; 82962; 84156; 84450; 84460; 84550; 85025; 85027; 86703; 86762; 86780; 86803; 86850; 86900; 86901; 87340; 87491; 87591; 87653; 88307; 99221; J7120; A4216; G0378; J2405

== ENCOUNTER → 2023-10-10 | Outpatient (CLI) | payer OTHER, SELFPAY | END | disposition home or self-care (01) | LOC: LABSPEC 14:45 | PROVIDERS: PCP Family Medicine; Referring Provider Nurse Practitioner Women's Health; Visit Provider Nurse Practitioner Women's Health | DX: T81.31XA Disruption of external operation (surgical) wound, not elsewhere classified, initial encounter (principal) | CPT/HCPCS: 87070; 87075; 87077; 87186; 87205 ==

== ENCOUNTER → 2023-10-21 | Outpatient (CLI) | payer OTHER, SELFPAY ==
[2023-10-21 12:40] LABS: Absolute Lymphocyte Count 1.74 X10^3/uL (0.83-4.51); Absolute Neutrophil Count 4.3 X10^3/uL (2.0-7.7); Basophil# 0.03 X10^3/uL; Basophil% 0.4 % (0-1); Eosinophil# 0.08 X10^3/uL; Eosinophils% 1.2 % (0-5); Hematocrit 38.5 % (37-47); Hemoglobin 12.8 g/dL (12.0-15.0); Lymphocyte # 1.74 X10^3/ul (0.83-4.51); Lymphocyte % 25.6 % (19-41); Mean Corp Hgb Conc 33.2 g/dL (32-36); Mean Corpuscular Hgb 31.5 pg (27.0-32.0); Mean Corpuscular Volume 94.8 fL (81-99); Monocyte# 0.59 X10^3/uL; Monocyte% 8.7 % (0-10); NRBC Flagged by Analyzer 0 % (0-5); Neutrophil # 4.33 X10^3/uL (2.7-7.7); Neutrophil % 63.8 % (47-70); Platelet Count 329 K/mm3 (150-450); RBC Distribution Width CV 11.6 % (11.6-14.6); Red Blood Count 4.06 M/mm3 (4.2-5.4); White Blood Count 6.8 K/mm3 (4.4-11.0)
== END | disposition home or self-care (01) ==
LOC: LAB 12:14
PROVIDERS: PCP Family Medicine; Referring Provider Nurse Practitioner Women's Health; Visit Provider Nurse Practitioner Women's Health
DX: D64.9 Anemia, unspecified (principal)
CPT/HCPCS: 36415; 85025